=== PATIENT | male | born 1965 | race Caucasian/White ===

== ENCOUNTER 2019-05-18 13:14 | Emergency (ER) | payer OTHER ==
[~2019-05-18] VITALS: Ht 177.8 cm; Wt 67.1 kg
== END 2019-05-18 22:11 | disposition home or self-care (01) ==
LOC: ER 13:14
DX: R10.13 Epigastric pain (principal)

== ENCOUNTER 2019-05-31 07:40 | Outpatient (CLI) | payer OTHER | END 2019-05-31 07:46 | disposition home or self-care (01) | LOC: NUCLEAR 07:40 | DX: R93.2 Abnormal findings on diagnostic imaging of liver and biliary tract (principal); R10.2 Pelvic and perineal pain | CPT/HCPCS: 78227; A9537 ==